=== PATIENT | female | born 1945 | race American Indian/Alaskan Native ===

== ENCOUNTER 2019-03-04 09:24 | Day surgery (SDC) | payer MEDICARE ==
[2019-03-04] MEDS ORDERED: NACL 0.9% 1000 ML 1,000 ML IV SCH (11:15)
--- NOTE | 2019-03-04 12:00 | Anesthesia Day of Surgery ---
Anesthesia Day of Surgery - Day of Surgery Patient Examined: Yes Patient H&P Reviewed: Yes Patient is NPO: Yes
--- NOTE | 2019-03-04 12:02 | Anesthesia Consultation ---
Anesthesia Consult and Med Hx Date of service: 03/04/19 - Airway Anesthetic Teeth Evaluation: Dentures (Unable to assess dentition) ROM Head & Neck: Adequate Mental/Hyoid Distance: Adequate Mallampati Class: Class II Intubation Access Assessment: Probably Good - Pre-Operative Health Status ASA Pre-Surgery Classification: ASA3 Proposed Anesthetic Plan: MAC - Cardiovascular System Hx Hypertension: Yes - Central Nervous System Hx Neuromuscular Disorder: Yes (R HIP FX) CVA: Yes (RIGHT SIDE SEVER WEAKNESS) Hx Psychiatric Problems: Yes (Anxiety/Depression/Alzheimer's)
[2019-03-04] MEDS ORDERED: DIPRIVAN 10 MG/ML IV ONE (12:19)
[2019-03-04] MEDS ORDERED: TRIPLE ANTIBIOTIC TP ONE (12:29)
[2019-03-04] MEDS ORDERED: XYLOCAINE MPF 2% ONE (12:30)
--- NOTE | 2019-03-04 12:40 | Short Stay Summary ---
Short Stay Documentation Date of service: 03/04/19 Narrative H&P: the patient presents for diagnostic EGD for epigastric pain and for endoscopic removal of an old G tube, no longer in use. The tube was nearly broken and has been present for more than 2 years. Endoscopic removal to prevent breakage of the tube by external removal leaving the bumper in the stomach was felt necessary. - History Past Medical History: diabetes, hyperlipidemia, other (cva, dementia, depression) Past Surgical History: Other (gastrostomy tube) Social history: no significant social history - Allergies and Medications Current Medications: Allergies Penicillins Adverse Reaction (Verified 03/04/19 11:12) Unknown Home Medications Medication Instructions Recorded Confirmed Last Taken Type Citalopram 20 mg PO DAILY 03/04/19 03/04/19 02/26/19 History Latanoprost 0.005% 1 drop OU HS 03/04/19 03/04/19 02/25/19 History Pravastatin 10 mg PO HS 03/04/19 03/04/19 02/25/19 History RX: Insulin Regular, Human Nicu 1 - 12 units SUB-Q TID 03/04/19 03/04/19 02/26/19 History [HumuLIN R NICU (1 UNIT/1 ML)] RX: clonazePAM [KlonoPIN] 0.25 mg PO BID 03/04/19 03/04/19 02/26/19 History RX: glipiZIDE [Glucotrol] 1 tab PO BID 03/04/19 03/04/19 02/26/19 History Salonpas Patch 10 mg TRANSDERMA DAILY 03/04/19 03/04/19 02/26/19 History Senna Plus Tablet 8.6 mg PO DAILY 03/04/19 03/04/19 02/26/19 History Sodium Bicarbonate 650 mg PO BID 03/04/19 03/04/19 02/26/19 History Vitamin D3 5,000 UNIT 1 tab PO DAILY 03/04/19 03/04/19 02/26/19 History roxiCODONE 2.5 mg PO Q6H PRN 03/04/19 03/04/19 Unknown History traMADol 50 mg PO Q6H PRN 03/04/19 03/04/19 02/05/19 History Active Medications Sodium Chloride (Nacl 0.9% 1000 Ml) 1,000 mls @ 50 mls/hr IV DIRECT SAIRA - Physical exam General appearance: no acute distress, well-nourished Integumentary: no rash, no growths, no abnormal pigmentation HEENT: Atraumatic, PERRLA, EOMI, Mucous membr. moist/pink Lungs: Clear to auscultation, Normal air movement Breasts: deferred Heart: Regular rate, Normal S1, Normal S2, No murmurs Gastrointestinal: normoactive bowel sounds, no tenderness, no distended, no masses, no organomegaly, other (old nearly broken gastrostomy tube in LUQ present) Female Genitourinary: deferred Rectal Exam: deferred Extremities: no ischemia, pulses intact, pulses symmetrical, No edema, normal temperature, normal color, abnormal (bilateral flexion contractures, right more than left) Neurological: Sensation intact, Cranial nerves 3-12 NL, Other (right hemiplegia, mild dysarthria, moderate dementia) - Brief post op/procedure progress note Date of procedure: 03/04/19 Findings: see dictation Estimated blood loss: none Pathology: none Condition: stable - Disposition Condition at discharge: Good Disposition: DC-01 TO HOME OR SELFCARE - Discharge Diagnoses (1) Epigastric pain Status: Acute (2) Malfunction of gastrostomy tube Status: Acute Short Stay Discharge Plan Activity: advance as tolerated Weight Bearing Status: Non-Weight Bearing Diet: diabetic Follow up with: GEORGINA PRASAD MD [Primary Care Provider] - 7 Days
[2019-03-04] MEDS ORDERED: WATER FOR IRRIG STERILE IR ONE (12:45)
--- NOTE | 2019-03-04 12:47 | Operative Report ---
Operative Report Operative Report: Date of procedure: 03/04/2019 Procedure: Esophagogastroduodenoscopy with removal of old gastrostomy tube (f oreign body) endoscopically by snare. Preprocedure diagnosis: [Epigastric pain. Gastrostomy tube malfunction. Medications: Propofol per anesthesia. Estimated blood loss-0 Endoscopist: Dr. Hauser After careful discussion of the nature and purpose of the procedure as well as details the technique risks benefits and alternatives consent was obtained from the family. The patient was placed in the supine position and medicated per anesthesia. The tip of the Olympus upper video scope was passed per orum under direct vision into the esophagus and advanced into the stomach and descending duodenum. The descending duodenum the duodenal bulb and pylorus were symmetrical and normal. The scope was withdrawn into the stomach and the stomach then gently insufflated with air. The antrum was normal. The stomach was further insufflated and the scope was then retroflexed and partially withdrawn. The cardia, fundus, and body of the stomach were within normal limi ts and easily distensible.the old gastrostomy bumper was located on the anterior wall of the distal body. The external portion of the tube was severed and the internal bumper grasped with the snare. The tube was removed by removal of the scope on the snare tip successfully. The scope was then withdrawn in the forward position. The esophagogastric junction was at 38 cm. The esophageal body was normal throughout. The procedure was was well tolerated and the patient was observed in recovery. Impressions: No evidence of ulcers or tumor to explain pain. Status post removal of foreign body, gastrostomy tube. Plan: Follow-up as needed. Electronically signed: Papo Hauser MD
[2019-03-04 16:34] VITALS: BP 135/72
== END 2019-03-04 09:25 | disposition home or self-care (01) ==
LOC: GIO 09:24
PROVIDERS: ATTEND Internal Medicine Gastroenterology
DX: K94.23 Gastrostomy malfunction (principal); R10.13 Epigastric pain
CPT/HCPCS: 43247; 82962; J2704; J7030; A6250